=== PATIENT | male | born 1980 | race Caucasian/White ===

== ENCOUNTER 2022-03-24 15:29 | Emergency (ER) | payer SELFPAY ==
[2022-03-24] MEDS ORDERED: KETOROLAC TROMETH 30 MG/ML 1ML VIAL IV ONE (16:00)
[2022-03-24 16:51] LABS: Basophils # (auto) 0 10 ^3/uL (0-0.2); Basophils % (auto) 0.2 % (0.0-2.0); Eosinophils # (auto) 0 10 ^3/uL (0-0.8); Eosinophils % (auto) 0.1 % (0.0-7.0); Hematocrit 42.1 % (41.0-53.0); Lymphocytes # (auto) 1.3 10 ^3/uL (0.4-5.4); Lymphocytes % (auto) 7.8 % (10.0-50.0); Mean Corpuscular Hemoglobin 29.2 pg (28.0-32.0); Mean Corpuscular Hgb Conc. 33.2 g/dL (32.0-36.0); Mean Corpuscular Volume 88.1 fL (80.0-100.0); Monocytes # (auto) 2.5 10 ^3/uL (0-1.3); Monocytes % (auto) 14.9 % (0.0-12.0); Neutrophils # (auto) 13.1 10 ^3/uL (1.6-8.6); Red Blood Cells 4.78 10^6/uL (4.5-5.90)
[2022-03-24 17:06] LABS: Alanine Aminotransferase 64 U/L (16-61); Albumin 3.7 g/dL (3.4-5.0); Anion Gap 10 (5-15); Aspartate Aminotransferase 131 U/L (15-37); BUN/Creatinine Ratio 15.7; Blood Alcohol < 3.0 mg/dL (0-5); Blood Urea Nitrogen 18 mg/dL (7-18); Calcium 9.2 mg/dL (8.5-10.1); Carbon Dioxide 26 mmol/L (21-32); Chloride 102 mmol/L (98-107); GFR African American 89 mL/min; GFR Non-African American 74 mL/min; Glucose 128 mg/dL (74-106); Potassium 3.2 mmol/L (3.5-5.1); Sodium 138 mmol/L (136-145)
[2022-03-24 17:08] LABS: Alkaline Phosphatase 80 U/L (45-117); Total Protein 7.3 g/dL (6.4-8.2)
[2022-03-24 20:20] VITALS: BP 116/83
== END 2022-03-24 20:50 | disposition home or self-care (01) ==
LOC: EDBD 15:29 → ER 15:29
DX: S32.019A Unspecified fracture of first lumbar vertebra, initial encounter for closed fracture (principal); R56.9 Unspecified convulsions; V48.0XXA Car driver injured in noncollision transport accident in nontraffic accident, initial encounter; Y93.89 Activity, other specified; Y92.410 Unspecified street and highway as the place of occurrence of the external cause; Y99.8 Other external cause status
CPT/HCPCS: 36415; 70450; 72100; 72131; 80053; 80320; 85025; 99285; J1885